=== PATIENT | female | born 1955 ===

== ENCOUNTER 2019-06-15 11:46 | Day surgery (SDC) | payer OTHER ==
[~2019-06-15] VITALS: Ht 172.7 cm; Wt 97.0 kg
[~2019-06-15 11:46] MED LIST: ALLERCLEAR10 MG; ASTEPRO205.5 MCG/; Advil200 M1; Cranberry500 M1; ERGO50000; OMEP20ER; PRAV20; PROBIOTIC1 EAC1; TRAZ50; Vitamin D2000 UNIT
--- NOTE | 2019-06-15 12:21 | NUR ---
06/15/19 1221 Juliana Ceron 1 TRY HAND RIGHT BLEW 2 TRY HAND LEFT VALVE 3 TRY HAND RIGHT GOOD
== END 2019-06-15 13:41 | disposition home or self-care (01) ==
LOC: ORSCSDS 11:46
PROVIDERS: Internal Medicine Gastroenterology
PROC: 0DB58ZX Excision of Esophagus, Via Natural or Artificial Opening Endoscopic, Diagnostic (ICD-10-PCS; principal; 2019-06-15 13:00)
PROC: 0DBK8ZX Excision of Ascending Colon, Via Natural or Artificial Opening Endoscopic, Diagnostic (ICD-10-PCS; principal; 2019-06-15 13:00)
PROC: 0DBN8ZX Excision of Sigmoid Colon, Via Natural or Artificial Opening Endoscopic, Diagnostic (ICD-10-PCS; principal; 2019-06-15 13:00)
PROC: 0DBE8ZX Excision of Large Intestine, Via Natural or Artificial Opening Endoscopic, Diagnostic (ICD-10-PCS; principal; 2019-06-15 13:00)
PROC: 0D757ZZ Dilation of Esophagus, Via Natural or Artificial Opening (ICD-10-PCS; principal; 2019-06-15 13:00)
PROC: 0DB98ZX Excision of Duodenum, Via Natural or Artificial Opening Endoscopic, Diagnostic (ICD-10-PCS; principal; 2019-06-15 13:00)
DX: Z12.11 Encounter for screening for malignant neoplasm of colon (principal); R13.14 Dysphagia, pharyngoesophageal phase; R19.7 Diarrhea, unspecified; G47.33 Obstructive sleep apnea (adult) (pediatric); D12.5 Benign neoplasm of sigmoid colon; K22.2 Esophageal obstruction; D12.2 Benign neoplasm of ascending colon; R10.13 Epigastric pain; I10 Essential (primary) hypertension; E66.9 Obesity, unspecified; Z68.33 Body mass index [BMI] 33.0-33.9, adult; Z87.891 Personal history of nicotine dependence; Z79.899 Other long term (current) drug therapy
CPT/HCPCS: 88305; J2704; J7120

== ENCOUNTER 2025-02-11 09:58 | Day surgery (SDC) | payer MEDICARE ==
[~2025-02-11] VITALS: Ht 172.7 cm; Wt 107.1 kg
[~2025-02-11 09:58] MED LIST changes: +EPINEPhrine HCl 1 MG / ML 30ML Vial ONE; +Lidocaine 1%-Epineph 1:200000 30 ML SDV ONE; +Lidocaine HCl 4% 5 ML SDA ONE
[2025-02-11] MEDS ORDERED: Tranexamic Acid 100 ML IV ONE (10:52)
[2025-02-11] MEDS ORDERED: Amlodipine Bes2.5 MG PO (11:14)
[2025-02-11] MEDS ORDERED: DESV50 PO (11:15)
[2025-02-11] MEDS ORDERED: MAGNESIUM OXID500 MG PO (11:15)
[2025-02-11] MEDS ORDERED: B-COMPLEX WITH1 EAC2 PO (11:15)
[2025-02-11] MEDS ORDERED: LOSARTAN POTAS100 M1 PO (11:17)
[2025-02-11] MEDS ORDERED: Ketorolac Tromethamine 30mg Vial ONE (12:00)
[2025-02-11] MEDS ORDERED: Dexamethasone Sod Phos 10 MG/ML 1ML VIAL ONE (12:00)
[2025-02-11] MEDS ORDERED: Ondansetron HCl 2 MG / ML 2ML Vial ONE (12:00)
[2025-02-11] MEDS ORDERED: Metoclopramide HCl 5MG / ML 2ML Vial ONE (12:00)
[2025-02-11] MEDS ORDERED: FentaNYL Citrate 50 MCG/ML 2 ML Injection ONE ×2 (12:28→13:10)
--- NOTE | 2025-02-11 13:01 | NUR ---
02/11/25 1301 Marine Trujillo N 1 GM TXA STARTED IN OR AT [address] GOLDMAN
[2025-02-11] MEDS ORDERED: HYDROmorphone HCl/Pf 1MG SYR ONE ×2 (13:19→14:04)
[2025-02-11] MEDS ORDERED: Sugammadex Sodium 200 MG/2ML SDV (100 MG/ML) ONE (13:19)
[2025-02-11] MEDS ORDERED: Rocuronium Bromide 10 MG/ML 5ML Injection IV ONE (13:19)
--- NOTE | 2025-02-11 13:58 | NUR ---
02/11/25 1358 Radha Lawson PT HAS PRODUCTIVE COUGH, SCANT BLOODY SPUTUM AT THIS TIME.
[2025-02-11] MEDS ORDERED: Ipratropium/Albuterol SulF 2.5-0.5MG/3 ML Amp ONE (14:02)
--- NOTE | 2025-02-11 14:26 | NUR ---
02/11/25 1426 Radha Lawson HOB AT 70 DEGREES, PT DEEP BREATHING AND COUGHING. PT REPORTS RELIEF IN COUGHING AFTER ALBUTEROL NEB. NO DRAINAGE FROM NOSE AT THIS TIME, PT HAS SCANT BLOODY SPUTUM FROM PRODUCTIVE COUGH.
[2025-02-11] MEDS ORDERED: NS 500 ML IV ONE (14:30)
[2025-02-11 14:56] VITALS: BP 103/60
== END 2025-02-11 15:06 | disposition home or self-care (01) ==
LOC: ORSCSDS 09:58
PROVIDERS: Otolaryngology
PROC: 09BM0ZZ Excision of Nasal Septum, Open Approach (ICD-10-PCS; principal; 2025-02-11 11:30)
DX: J34.2 Deviated nasal septum (principal); J34.3 Hypertrophy of nasal turbinates; E78.00 Pure hypercholesterolemia, unspecified; I10 Essential (primary) hypertension; G47.33 Obstructive sleep apnea (adult) (pediatric); K21.9 Gastro-esophageal reflux disease without esophagitis; Z79.899 Other long term (current) drug therapy; Z87.891 Personal history of nicotine dependence
CPT/HCPCS: J0165; J1100; J1171; J1885; J2003; J2405; J2704; J2765; J3010; J7120

== ENCOUNTER 2025-02-16 22:52 | Emergency (ER) | payer MEDICARE ==
[~2025-02-16] VITALS: Ht 172.7 cm; Wt 104.3 kg
[~2025-02-16 22:52] MED LIST changes: +Amlodipine Bes2.5 MG PO; +B-COMPLEX WITH1 EAC2 PO; +DESV50 PO; -EPINEPhrine HCl 1 MG / ML 30ML Vial ONE; +LOSARTAN POTAS100 M1 PO; -Lidocaine 1%-Epineph 1:200000 30 ML SDV ONE; -Lidocaine HCl 4% 5 ML SDA ONE; +MAGNESIUM OXID500 MG PO
[2025-02-16 23:15] LABS: BASOPHILS ABSOLUTE AUTO 0.05 K/mm3 (0.00-0.23); BASOPHILS PERCENT AUTO 1 % (0-2); EOSINOPHILS ABSOLUTE AUTO 0.56 K/mm3 (0.00-0.68); EOSINOPHILS PERCENT AUTO 6 % (0-6); Hematocrit 36.5 % (33.0-51.0); Hemoglobin 12.3 g/dL (11.5-16.0); IMMATURE GRAN ABSOLUTE AUTO 0.02 K/mm3 (0.00-0.10); IMMATURE GRAN PERCENT AUTO 0 % (0-1); LYMPHOCYTES ABSOLUTE AUTO 3.24 K/mm3 (0.84-5.20); LYMPHOCYTES PERCENT AUTO 32 % (21-46); MONOCYTES ABSOLUTE AUTO 0.49 K/mm3 (0.16-1.47); MONOCYTES PERCENT AUTO 5 % (4-13); Mean Corpuscular HGB Conc 33.7 g/dL (31.5-36.5); Mean Corpuscular Volume 93 fL (80-100); NEUTROPHILS ABSOLUTE AUTO 5.69 K/mm3 (1.96-9.15); NEUTROPHILS PERCENT AUTO 57 % (41-73); NRBC ABSOLUTE 0.00 K/mm3 (0.00-0.02); NRBC Auto 0.0 /100 WBC (0.0-0.2); Platelet Count 212 K/mm3 (150-400); RDW Coefficient Variation 13.5 % (11.7-14.2); RDW Standard Deviation 45.7 fL (35.1-46.3)
[2025-02-16 23:37] LABS: Alanine Aminotransfer (ALT/SGP 55.0 U/L (12-78); Albumin, Blood 3.8 g/dL (3.4-5.0); Albumin/Globulin Ratio 1.2 (0.8-1.8); Anion Gap 6.0 mmol/L (3-11); Aspartate Aminotrans (AST/SGOT 36.0 U/L (12-37); Bilirubin, Total 0.4 mg/dL (0.1-1.0); Blood Urea Nitrogen 21.0 mg/dL (8-24); CO2, Blood 28.0 mmol/L (21-32); Calcium, Blood 8.8 mg/dL (8.5-10.1); Chloride, Blood 103.0 mmol/L (98-108); Creatinine, Blood 0.96 mg/dL (0.40-1.00); Globulin, Blood 3.1 g/dL (2.2-4.0); Glucose, Blood 118.0 mg/dL (70-99); Potassium, Blood 3.4 mmol/L (3.5-5.5); Sodium, Blood 134.0 mmol/L (136-145); Total Protein, Blood 6.9 g/dL (6.4-8.2)
[2025-02-17 02:13] VITALS: BP 121/81
== END 2025-02-17 02:16 | disposition home or self-care (01) ==
LOC: ER 22:52
PROVIDERS: Student in an Organized Health Care Education/Training Program
DX: R55 Syncope and collapse (principal); I10 Essential (primary) hypertension; K21.9 Gastro-esophageal reflux disease without esophagitis; Z87.891 Personal history of nicotine dependence; Z88.1 Allergy status to other antibiotic agents; Z88.2 Allergy status to sulfonamides; Z88.5 Allergy status to narcotic agent; Z79.899 Other long term (current) drug therapy
CPT/HCPCS: 71046; 80053; 84484; 85025; 93005; 93010; 99285-25